=== PATIENT | female | born 1990 | race Caucasian/White ===

== ENCOUNTER 2017-04-12 12:45 | Emergency (ER) | payer OTHER ==
[2017-04-12] MEDS: LIDOCAINE W/EPINEPHRINE 1% 20ML VIAL SC (15:15)
[2017-04-12] MEDS: ADACEL/BOOSTRIX VACCINE (DIPHTH/PERTUSS/ACELL/TETANUS)0.5ML SYR (90715) IM (15:15)
== END 2017-04-12 16:09 | disposition home or self-care (01) ==
LOC: M ED 12:45
DX: S01.111A Laceration without foreign body of right eyelid and periocular area, initial encounter (principal); W01.198A Fall on same level from slipping, tripping and stumbling with subsequent striking against other object, initial encounter; Y92.098 Other place in other non-institutional residence as the place of occurrence of the external cause
CPT/HCPCS: 90715

== ENCOUNTER 2019-09-15 16:59 | Outpatient (CLI) | payer OTHER ==
[~2019-09-15] VITALS: Ht 157.5 cm; Wt 82.2 kg
[2019-09-15 17:15] VITALS: BP 113/82
[2019-09-15] MEDS ORDERED: PRENTAB9 PO (17:17)
[2019-09-15] MEDS ORDERED: LR 1,000 ML IV ONE (17:45)
[2019-09-15 18:18] VITALS: BP 117/74
[2019-09-15 18:39] VITALS: BP 111/74
--- NOTE | 2019-09-15 21:26 | HPE ---
DATE OF ADMISSION: 09/15/2019 29-year-old 2, para 1, last menstrual period (LMP) 12/15/2018, estimated date of confinement (EDC) 09/21/2019 at 39 and 1 weeks of gestation, had a history of decreased movement. She only had three movements in 2 hours, and she is not well hydrated, has not had anything to drink. She had a stripping of her membranes done yesterday by nurse practitioner. She was found to be 3 cm, 50% effaced, -1 station. PAST HISTORY: In 2013 at 39 weeks, spontaneous vaginal delivery, female, 6 pounds 2 ounces, had local anesthetic for repair of a J-type episiotomy. Risk factors is her obesity. Labs are B+, HIV negative, hepatitis negative, RPR negative, rubella immune. Pap normal. Gonorrhea and chlamydia are negative. Early GTT was 86; 28-week GTT was 121. She is GBS negative. Presently, her urine is 1.020, pH of 5, +1 leukocytes. Blood pressure 113/82, respirations 18, pulse 120, temperature 97.6. After hydration of fluids with IV bolus, her tachycardia came down to 95, she appeared to be well hydrated, and she was voiding volumes of urine. On examination, she appeared dehydrated. Mucous membranes were dry. She had a history of tachycardia. Pelvic examination: The cervix was anterior, -1 station, 50-60% effaced, 3 cm and soft. No change from 2 days ago when she had stripping of membranes. No vaginal bleeding, loss or bleeding, vertex presenting. We did an ultrasound; vertex presenting, SERA total was 13.82 cm, the smallest pocket was 3.0. cardiac activity, motion, and limb motion were noted. Our plan was to hydrate the patient, and we gave her the option of going home or staying for 2-3 hours to reevaluate her cervix afterwards. She elected to discharge and come back if she is in active labor, and she was discharged undelivered.
== END 2019-09-15 19:15 | disposition home or self-care (01) ==
LOC: M LDO 16:59
PROVIDERS: ATTEND Obstetrics & Gynecology
DX: O36.8130 Decreased fetal movements, third trimester, not applicable or unspecified (principal); Z3A.39 39 weeks gestation of pregnancy
CPT/HCPCS: 59025; 76815; 96360; 96361; G0378; G0463

== ENCOUNTER 2019-09-16 11:27 | Inpatient (IN) | payer OTHER ==
[2019-09-16] VITALS (53 sets, daily range): BP systolic 101–132; BP diastolic 56–78
[~2019-09-16] VITALS: Ht 157.5 cm; Wt 83.0 kg
[~2019-09-16 11:27] MED LIST: PRENTAB9 PO
[2019-09-16] MEDS ORDERED: LACTATED RINGER'S 1000 ML IV STA (12:06)
[2019-09-16] MEDS ORDERED: LR 1,000 ML IV SCH (12:06)
[2019-09-16 12:27] LABS: BASO % 0.2 % (0.0-1.0); EOS % 0.1 % (0.0-3.0); HEMOGLOBIN 12.4 g/dl (12.0-15.5); LYMPH # 2.1 10^3/uL (1.5-5.0); LYMPH % 13.7 % (24.0-44.0); MEAN CORPUSCULAR HEMOGLOBIN 28.8 pg (27.0-33.0); MEAN CORPUSCULAR HGB CONC 33.5 g/dl (32.0-36.5); MONO # 0.7 10^3/uL (0.0-0.8); MONO % 4.5 % (0.0-5.0); NEUTROPHILS # 12.2 10^3/uL (1.5-8.5); NEUTROPHILS % 81.2 % (36.0-66.0); PLATELET COUNT, AUTOMATED 243 10^3/uL (150-450)
[2019-09-16] MEDS ORDERED: FENTANYL 2MCG/ML ROPIVACAINE 0.2% IN 0.9% NACL 100ML IVBAG As Ordered ONE (12:40)
[2019-09-16] MEDS ORDERED: ONDANSETRON 4MG/2ML VIAL IV PRN (14:30)
[2019-09-16] MEDS ORDERED: FENTANYL/ROPIVACAINE/NACL BAG 100 ML EPIDURAL SCH (14:30)
[2019-09-16] MEDS ORDERED: EPIDURAL/PCA KEYS XX PRN (14:30)
[2019-09-16] MEDS ORDERED: diphenhydrAMINE 50MG/ML VIAL (J1200) IV PRN (14:30)
[2019-09-16] MEDS ORDERED: LACTATED RINGER'S 1000 ML IV PRN (14:30)
[2019-09-16] MEDS ORDERED: EPIDURAL COMMENT XX SCH (14:30)
[2019-09-16] MEDS ORDERED: REFRIGERATOR IV KEYS XX PRN (14:30)
[2019-09-16] MEDS ORDERED: NALOXONE INJ 0.4MG/1ML VIAL (J2310 PER 1MG) IV PRN (14:30)
[2019-09-16] MEDS ORDERED: ePHEDrine SULFATE 25 MG/5 ML(5MG/ML) SYRINGE IV PRN (14:30)
[2019-09-16] MEDS ORDERED: OXYTOCIN 30 UNITS IN 0.9% NaCl 500ML IV BAG (J2590) As Ordered ONE (18:11)
[2019-09-16] MEDS ORDERED: OXYTOCIN DRIP 30 UNITS in IV 1 EA IV SCH (18:58)
[2019-09-16] MEDS ORDERED: IBUPROFEN 800 MG TAB PO PRN (19:00)
[2019-09-16] MEDS ORDERED: ACETAMINOPHEN 500 MG TAB PO PRN (19:00)
[2019-09-16] MEDS ORDERED: DOCUSATE SODIUM 100MG CAPSULE PO PRN (19:00)
[2019-09-16] MEDS ORDERED: RHOGAM 300 MCG (1500 IU) INJ (J2790) IM SCH (19:00)
[2019-09-16] MEDS ORDERED: ACETAMINOPHEN TAB 650MG DOSE (2X325MG) PO PRN (19:00)
[2019-09-16] MEDS ORDERED: MOM 30ML SUSPENSION UDC PO PRN (19:00)
[2019-09-16] MEDS ORDERED: MEASLES,MUMPS,RUBELLA VACCINE INJ (MMR-II) (90707) SC SCH (19:00)
[2019-09-16] MEDS ORDERED: DIBUCAINE 1% OINTMENT 30GM TOP PRN (19:00)
[2019-09-16] MEDS ORDERED: METHYLERGONOVINE MALEATE 0.2 MG TAB PO PRN (19:00)
[2019-09-16] MEDS ORDERED: IBUPROFEN 600MG TAB PO PRN (19:00)
[2019-09-16] MEDS ORDERED: ANUSOL HC CREAM 30GM TOP PRN (19:00)
--- NOTE | 2019-09-16 19:08 | DNPDOC ---
[facility] Delivery Note Delivery Note DATE OF DELIVERY: 09/16/2019 TIME OF : 1822 GENDER: Female. APGARS:, 9 and 9. WEIGHT: 3130 grams or 6 pounds 14 ounces. LACERATIONS: None ANESTHESIA: Epidural. ESTIMATED BLOOD LOSS: 300ml COUNTS: 5 laparotomy sponges accounted for prior to after delivery. DELIVERY NOTE: On 09/16/2019 at 1822, Mrs. Malone a 29-year-old 2 now para 2 had a spontaneous vaginal delivery of viable female , Apgars, 9 and 9. Weight was 3130 g or 6 lbs. 14 oz. Head was delivered occiput anterior (OA). Nuchal cord was manually reduced followed by delivery of the shoulders and corpus. Infant was handed to mom with a good cry. Cord was clamped times two and was cut by the father of baby under my direction. Placenta was then drained and delivered grossly intact. A premixed bag of 500 mL of normal saline with 30 units of Pitocin was then bolused along with uterine massage until the uterus was firm. On inspection, cervix, vagina, perineum was grossly intact and hemostatic. Mom and baby in recovery on stable condition. The couples decided to remain in daughter, COLETTE Dacosta MD. Sep 16, 2019 19:08
[2019-09-17 06:00] VITALS: BP 115/69
--- NOTE | 2019-09-17 08:23 | IPNPDOC ---
Progress Note Date of Service: Sep 17, 2019 Day#: 1 Progress Note SUBJECT: Doing well without complaints. Ambulating, voiding and pain is well- controlled. Reports minimal lochia. +breast feeding OBJECTIVE: VITAL SIGNS: Within normal limits, afebrile. Alert and oriented times three. Abdomen: Fundus firm at U-2. Soft, NTTP. Ext: neg calf tenderness. ASSESSMENT: day #1 status post normal spontaneous vaginal delivery. Recovering in stable condition. PLAN: 1. Continue routine care 2. Discharge plans for tomorrow VS, I&O, 24H, Fishbone Vital Signs/I&O Vital Signs Date Time Temp Pulse Resp B/P (MAP) Pulse Ox O2 Delivery O2 Flow Rate FiO2 09/17/19 06:00 97.7 80 17 115/69 (84) 97 Room Air I&O- Last 24 Hours up to 6 AM 09/17/19 06:00 Output Total 700 ml Balance -700 ml Laboratory Data 24H LABS Laboratory Tests 2 09/16/19 11:59: Serology Scanned Report Hepatitis B Testing 09/16/19 12:15: Immature Granulocyte % (Auto) 0.3, Neutrophils (%) (Auto) 81.2H, Lymphocytes (%) (Auto) 13.7L, Monocytes (%) (Auto) 4.5, Eosinophils (%) (Auto) 0.1, Basophils (%) (Auto) 0.2, Neutrophils # (Auto) 12.2H, Lymphocytes # (Auto) 2.1, Monocytes # (Auto) 0.7, Eosinophils # (Auto) 0.0, Basophils # (Auto) 0.0, Nucleated Red Blood Cells % (auto) 0.0, Syphilis Serology NONREACTIVE CBC/BMP Laboratory Tests 09/16/19 12:15 COLETTE ZIEGLER MD. Sep 17, 2019 08:23
[2019-09-17] MEDS: PRENATAL VITAMINS CHEWABLE TABLET PO SCH (09:25)
[2019-09-17 18:00] VITALS: BP 117/70
[2019-09-18 06:00] VITALS: BP 125/76
[2019-09-18] MEDS: PRENATAL VITAMINS CHEWABLE TABLET PO SCH (07:20)
[2019-09-18] MEDS ORDERED: ACET-683 PO (08:42)
[2019-09-18] MEDS ORDERED: IBUP80TA PO (08:42)
--- NOTE | 2019-09-18 08:45 | IPNPDOC ---
Progress Note Date of Service: Sep 18, 2019 Day#: 2 Progress Note SUBJECT: Loni is a 29yo G2 now P2002; Doing well without complaints. Ambulat ing, voiding and pain is well-controlled. Reports minimal lochia. +breast feeding. OBJECTIVE: VITAL SIGNS: Within normal limits, afebrile. Alert and oriented times three. Abdomen: Fundus firm at U-2. Ext: neg calf tenderness. ASSESSMENT: day #2, normal involution, stable and progression well. without concern; some formula supplementation. PLAN: 1. Discharge to home today. 2. Tylenol and Motrin for pain. 3. Encourage breast feeding and ambulation. 4. Will discuss Mirena at PP visit. 5. Routine PP visit in 6 weeks in clinic. 6. Discussed return precautions at length. VS, I&O, 24H, Fishbone Vital Signs/I&O Vital Signs Date Time Temp Pulse Resp B/P (MAP) Pulse Ox O2 Delivery O2 Flow Rate FiO2 09/18/19 06:00 98.0 77 18 125/76 (92) 97 Room Air SANDRA GARIBAY CNM Sep 18, 2019 08:45
--- NOTE | 2019-09-18 08:50 | OBDS ---
[facility] Obstetrical Discharge Sum. Obstetrical Discharge Summary Date: Sep 18, 2019 Time: 08:46 : 2 Term: 2 Pre-term: 0 Abortions: 0 Livin Sex: Female Weight: pounds (6), ounces (14), grams (3130) A/P, Post Course List any complications Admission diagnosis: Labor Discharge diagnosis: Delivered Condition at Discharge: Stable Discharge Instructions: Nothing in vagina for 6 weeks, hydration, rest, return precautions reviewed Activity: Increase as tolerated Diet: Regular Medications: Motrin/Tylenol Follow-up: 6-8 weeks with SANDRA Ramirez CNM Sep 18, 2019 08:50
== END 2019-09-18 11:55 | disposition home or self-care (01) | DRG 807 ==
LOC: M LDO 11:27 → M LDI 11:57 → M OBS 21:00
PROVIDERS: ADMIT Advanced Practice Midwife; ATTEND Advanced Practice Midwife
PROC: 10E0XZZ Delivery of Products of Conception, External Approach (ICD-10-PCS; principal; 2019-09-16)
PROC: 10907ZC Drainage of Amniotic Fluid, Therapeutic from Products of Conception, Via Natural or Artificial Opening (ICD-10-PCS; 2019-09-16)
DX: O69.81X0 Labor and delivery complicated by cord around neck, without compression, not applicable or unspecified (principal); Z37.0 Single live birth; Z3A.39 39 weeks gestation of pregnancy